=== PATIENT | male | born 1985 | race Caucasian/White ===

== ENCOUNTER 2021-01-21 20:08 | Emergency (ER) | payer OTHER, BC, MEDICAID, SELFPAY ==
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
[2021-01-21 20:23] VITALS: BP 143/90; PULSE 123; RESP 19; TEMP 36.6; O2SAT 100
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
[2021-01-21] MEDS: ALPRAZolam (*CRX) 0.25 MG TABLET 0.5 MG PO (22:04)
--- NOTE | 2021-01-21 22:08 | PC.NURSE ---
Returns from xray. Pt remains restless. collar remains in place. Pt's left forearm wound cleansed, and bandaid placed. Pt requests a popsicle and something for pain.
[2021-01-21] MEDS: IBUPROFEN 400 MG TABLET 800 MG PO (22:53)
--- NOTE | 2021-01-21 22:56 | PC.NURSE ---
Dr. Gutiérrez at bedside discussing plan of care. Offered to suture left arm wound and pt refuses at this time. C-collar removed per order. Pt given pain pill po and the orange popsicle he's been requesting.
== END 2021-01-21 23:08 | disposition home or self-care (01) ==
PROVIDERS: Emergency Provider General Practice
DX: S51.012A Laceration without foreign body of left elbow, initial encounter (principal); S00.81XA Abrasion of other part of head, initial encounter; S16.1XXA Strain of muscle, fascia and tendon at neck level, initial encounter; S60.221A Contusion of right hand, initial encounter; F41.9 Anxiety disorder, unspecified; F17.210 Nicotine dependence, cigarettes, uncomplicated; V43.52XA Car driver injured in collision with other type car in traffic accident, initial encounter
CPT/HCPCS: 70450; 71046; 72125; 73080; 73130; 99284; A9270